=== PATIENT | male | born 1955 | race Caucasian/White ===

== ENCOUNTER 2017-01-29 13:51 | Emergency (ER) | payer MEDICARE, OTHER ==
[2017-01-29 14:09] LABS: BASOPHIL# 0.1 X 10^3uL (0.0-0.1); BASOPHILS 0.8 % (0.0-2.0); EOSINOPHILS 0.7 % (0.0-6.0); EOSINOPHILS# 0.1 X 10^3uL (0.0-0.4); HEMATOCRIT 45.2 % (42.0-54.0); HEMOGLOBIN 15.5 g/dL (14.0-18.0); LYMPHOCYTES 17.3 % (20.0-40.0); LYMPHOCYTES# 1.3 X 10^3uL (0.8-3.8); MEAN CELL VOLUME 91.1 fL (80.0-100.0); MEAN CORPUS. HGB CONCENTRATION 34.3 g/dL (32.0-36.0); MEAN CORPUSCULAR HEMOGLOBIN 31.3 pg (29.0-35.0); MEAN PLATELET VOLUME 9.1 fL (7.4-10.4); MONOCYTES 10.3 % (2.0-10.0); MONOCYTES# 0.8 X 10^3uL (0.2-1.0); NEUTROPHILS 70.9 % (54.0-75.0); NEUTROPHILS# 5.3 X 10^3uL (2.6-6.7); PLATELET COUNT 220 X 10^3uL (130-440); RED BLOOD COUNT 4.96 X 10^6uL (4.20-6.10); RED CELL DISTRIBUTION WIDTH 14.1 % (11.5-14.5); WHITE BLOOD COUNT 7.6 X 10^3uL (3.9-10.7)
[2017-01-29 14:15] LABS: BLOOD UREA NITROGEN 15 mg/dL (9-20); CALCIUM 9.3 mg/dL (8.4-10.2); CHLORIDE 101 mmol/L (98-107); CREATININE 0.9 mg/dL (0.7-1.3); EST GLOMERULAR FILTRATION RATE > 60 mL/min; GLUCOSE 111 mg/dL (70-100); POTASSIUM 3.8 mmol/L (3.5-5.1); SODIUM 141 mmol/L (137-145)
[2017-01-29 14:30] LABS: TROPONIN I 0.045 ng/mL (0.00-0.034)
[2017-01-29] MEDS ORDERED: NITROGLYCERIN 250 ML IV ONE (14:38)
[2017-01-29] MEDS ORDERED: HEPARIN SOD PORCINE 5,000 UNITS/ML VIAL ONE (15:10)
--- NOTE | 2017-01-29 15:17 | RADIOLOGY REPORT ---
A limited single portable view of the chest, without prior films for comparison , demonstrates evidence of prior sternal splitting thoracotomy. The heart and vessels are unremarkable. The lung joseph are clear. No infiltrate, fluid or pneumothorax is seen. IMPRESSION: Post surgical changes. No acute cardiopulmonary abnormality is identified. MTDD
--- NOTE | 2017-01-29 15:49 | ER NURSING DOCUMENTATION ---
Nurse's Notes [facility] Name:Morgan Eugene Age:61 yrs Sex:Male :1955 Arrival Date:01/29/2017 Time:13:51 BedTrauma-C MD: Diagnosis:Anterior Myocardial Infarction, STEMI Presentation: 01/29 13:54 Presenting complaint: Patient states: CP and SOB while working outside earlier today. tg Pain radiated to left arm. 02/08 originally. Transition of care: patient was received from another setting of care (ambulatory primary care physician practice). AIR CAT ACTIVATION no. Asprin Given by EMS Given PO: 243mg. 13:54 Acuity: RONI 2 tg 13:54 Method Of Arrival: EMS: 410 tg 13:55 Care prior to arrival: 12 lead EKG IV initiated. gauge and site 18g RAC Saline lock tg initiated. IV Fluids given by EMS NS 500 ml Medication(s) given: ASA, NTG, x1. Triage Assessment: 13:56 General: Appears in no apparent distress, comfortable, Behavior is cooperative, tg pleasant. Pain: Complains of pain in anterior aspect of left upper chest Pain radiates to left shoulder Is intermittent. Cardiovascular: Capillary refill < 3 seconds Rhythm is sinus rhythm. Respiratory: Respiratory effort is even, unlabored. Derm: Skin is pink, warm & dry. Historical: - Allergies: No known drug Allergies; - Home Meds: 1. Albuterol Inhl 2. Coreg Oral 3. Digoxin Oral 4. fluticasone nasl 5. Lasix Oral 6. Lisinopril Oral 7. Hydrocodone-Acetaminophen 5-325 mg Oral 8. propafenone Oral - PMHx: ATRIAL FIB; SVT; ANGINA; - PSHx: aortic valve repair; - Tetanus: unknown. - Ebola Screening: : Patient negative for fever greater than or equal to 101.5 degrees Fahrenheit, and additional compatible Ebola Virus Disease symptoms. Patient denies exposure to infectious person. Patient denies travel to an Ebola-affected area in the 21 days before illness onset. No symptoms or risks identified at this time. . - Immunization history: Unable to Obtain. - Social history: Smoking status: unknown if patient ever smoked tobacco. Screenin:37 Infectious Disease Risk Unable to Obtain. Abuse screen: Denies threats or abuse. Denies tg injuries from another. Nutritional screening: No deficits noted. Assessment: 14:16 Reassessment: Pt reported that pain had returned, EKG obtained during pain episode. . tg 15:17 Reassessment: Flight team at bedside, placed pt on their monitoring equipment and tg assuming care of patient.. 15:22 Reassessment: Pt has left the ED. tg Vital Signs: 13:57 BP 136 / 68; Pulse 76; Resp 17; Pulse Ox 94% on R/A; Weight 85.73 kg (R); Height 6 ft. tg 1 in. (185.42 cm); Pain 3/10; 14:35 BP 135 / 76 (auto/); tg 14:36 Pulse 66 MON; Resp 22; Pulse Ox 94% ; tg 14:40 BP 129 / 76 (auto/); tg 14:45 BP 131 / 75 (auto/); tg 14:46 Pulse 62 MON; Resp 20; Pulse Ox 96% ; tg 14:51 BP 131 / 73 (auto/); tg 14:51 Pulse 60 MON; Resp 16; Pulse Ox 96% ; tg 15:14 Pain 0/10; tg 13:57 Body Mass Index 24.94 (85.73 kg, 185.42 cm) tg ED Course: 13:52 Patient arrived in ED. cj 13:52 EKG done. (by ED staff). Reviewed by Alon Foster MD. tg 13:52 engine monitor on. Pulse ox on. NIBP on. tg 13:54 Benjamin Guillen, RN is Primary Nurse. tg 13:55 Triage completed. tg 13:59 Port Xray Completed. tt 14:16 EKG done. Repeat EKG. tg 14:26 Alon Foster MD is Attending Physician. tl1 14:37 Valuables Remains with patient. tg 14:38 Inserted peripheral IV: 20 gauge in left antecubital area. Maintain field IV. Site tg clean & dry. Gauge & site: 18g RAC. Oxygen Oxygen administration via nasal cannula @ 2L/min. 14:49 EKG attached lp Administered Medications: 14:33 Drug: Nitro Drip - (Nitroglycerin 50 mg, D5W 250 ml); {Note: Set up by EMS on EMS pump, tg to faciliate transport.} Route: IV; Rate: 10 mcg/min; Site: right antecubital; 14:38 Follow up: Increased to 15mcg per minute tg 15:16 Follow up: IV Status: Infusing continued upon transfer tg 15:04 Drug: heparin 4000 units; Route: IVP; Site: left antecubital; tg 15:16 Follow up: Response: No adverse reaction tg Intake: Outcome: 15:14 Transferred: Patient will be transferred to: [facility]. Facility tg Acceptance Time: January 29, 2017 at 14:55 Patient's face sheet was faxed to accepting facility. Face Sheet included patient's name, address, age, gender, contact information and insurance information. Patient will be transported by: [facility] Helicopter. Report called to: BRYAN Zuniga in laborer rags Nurse and Physician Charting and Notes were sent to Accepting Facility. All tests and/or procedures with results, if applicable, were sent to accepting facility. 15:14 Condition: improved 15:14 Discharge Assessment: Patient awake, alert and oriented x 3. No cognitive and/or functional deficits noted. Patient verbalized understanding of disposition instructions. Patient awake and alert. 15:14 Instructed on need for transfer 15:48 ER care complete, transfer ordered by MD. lpr 15:48 Patient left the ED. lpr Signatures: Benjamin Guillen, RN RN tg Kelly Castellano, BRYAN RN lp Serenity Taylor Leslie, RN RN lpr Alon Foster MD MD tl1 Shanda Kapoor
--- NOTE | 2017-01-29 15:49 | ER PHYSICIAN DOCUMENTATION ---
Physician Documentation [facility] Name:Morgan Eugene Age:61 yrs Sex:Male :1955 Arrival Date:01/29/2017 Time:13:51 BedTrauma-C Private MD: Alon Vo Disposition: 01/29/17 15:48 Transfer ordered to [facility]. Diagnosis is Anterior Myocardial Infarction, STEMI. - Reason for transfer: Higher level of care. - Accepting physician is Serafin Mendez and Dr. Danelle Hernandez. - Condition is Serious. - Problem is new. - Symptoms have worsened. COBRA Form completed? Transfer - Mode of Transportation Helicopter HPI: 01/29 13:53 This 61 yrs old Male presents to ER via EMS with complaints of Chest Pain. tl1 13:53 The patient or guardian reports chest pain that is located primarily in the substernal tl1 area. Onset: suddenly, this morning, at 11:00. Associated signs and symptoms: Pertinent positives: diaphoresis, dizziness, Pertinent negatives: nausea, palpitations, shortness of breath, vomiting. The chest pain is described as sharp. Duration: The patient or guardian reports multiple episodes, approximately 6 episodes since symptom onset, that are intermittent, that wax and wane, the episodes last approximately 5 minute(s). Historical: - Allergies: No known drug Allergies; - Home Meds: 1. Albuterol Inhl 2. Coreg Oral 3. Digoxin Oral 4. fluticasone nasl 5. Lasix Oral 6. Lisinopril Oral 7. Hydrocodone-Acetaminophen 5-325 mg Oral 8. propafenone Oral - PMHx: ATRIAL FIB; SVT; ANGINA; - PSHx: aortic valve repair; - Tetanus: unknown. - Ebola Screening: : Patient negative for fever greater than or equal to 101.5 degrees Fahrenheit, and additional compatible Ebola Virus Disease symptoms. Patient denies exposure to infectious person. Patient denies travel to an Ebola-affected area in the 21 days before illness onset. No symptoms or risks identified at this time. . - Immunization history: Unable to Obtain. - Social history: Smoking status: unknown if patient ever smoked tobacco. Vital Signs: 13:57 BP 136 / 68; Pulse 76; Resp 17; Pulse Ox 94% on R/A; Weight 85.73 kg (R); Height 6 ft. tg 1 in. (185.42 cm); Pain 3/10; 14:35 BP 135 / 76 (auto/); tg 14:36 Pulse 66 MON; Resp 22; Pulse Ox 94% ; tg 14:40 BP 129 / 76 (auto/); tg 14:45 BP 131 / 75 (auto/); tg 14:46 Pulse 62 MON; Resp 20; Pulse Ox 96% ; tg 14:51 BP 131 / 73 (auto/); tg 14:51 Pulse 60 MON; Resp 16; Pulse Ox 96% ; tg 15:14 Pain 0/10; tg 13:57 Body Mass Index 24.94 (85.73 kg, 185.42 cm) tg MDM: 14:07 Patient medically screened. tl1 14:49 EKG attached lp 01/29 14:10 Order name: CBC AUTO DIF, MDIF/RMOR IF IND; Complete Time: 14:43 EDMS 01/29 14:43 Interpretation: WHITE BLOOD COUNT 7.6; HEMOGLOBIN 15.5; HEMATOCRIT 45.2; PLATELET COUNT tl1 220. 01/29 14:31 Order name: BASIC METABOLIC PANEL; Complete Time: 14:43 EDMS 01/29 14:43 Interpretation: Normal: SODIUM 141; POTASSIUM 3.8; CHLORIDE 101; CARBON DIOXIDE 30; tl1 GLUCOSE 111; BLOOD UREA NITROGEN 15; CREATININE 0.9; EST GLOMERULAR FILTRATION RATE > 60. 01/29 14:31 Order name: MAGNESIUM; Complete Time: 14:43 EDMS 01/29 14:44 Interpretation: Normal: MAGNESIUM 2.0. 1 01/29 14:31 Order name: BNP,NT-PRO; Complete Time: 14:43 EDMS 01/29 14:44 Interpretation: Abnormal: BNP,NT-PRO 556. tl1 01/29 14:31 Order name: TROPONIN I; Complete Time: 14:43 EDMS 01/29 14:44 Interpretation: Abnormal: TROPONIN I 0.045. 1 01/29 15:32 Order name: CHEST; SINGLE VIEW [id number]; Complete Time: 09:47 EDMS 01/30 09:34 Interpretation: NAD. Post op changes. 1 01/29 14:25 Order name: 12-lead EKG; Complete Time: 14:30 tg 01/29 14:25 Order name: 12-lead EKG; Complete Time: 14:30 tg 01/29 14:25 Order name: Cardiac Monitoring - Continuous; Complete Time: 14:30 tg 01/29 14:39 Order name: Oxygen; Complete Time: 14:56 tg Dispensed Medications: 14:33 Drug: Nitro Drip - (Nitroglycerin 50 mg, D5W 250 ml); {Note: Set up by EMS on EMS pump, tg to faciliate transport.} Route: IV; Rate: 10 mcg/min; Site: right antecubital; 14:38 Follow up: Increased to 15mcg per minute tg 15:16 Follow up: IV Status: Infusing continued upon transfer tg 15:04 Drug: heparin 4000 units; Route: IVP; Site: left antecubital; tg 15:16 Follow up: Response: No adverse reaction tg Signatures: Benjamin Guillen RN RN tg Kelly Castellano RN RN lp Roberts, Leslie, RN RN lpr Leigh, Tom, MD MD tl1
== END 2017-01-29 15:49 | disposition short-term general hospital (02) ==
LOC: ER 13:51
DX: I21.09 ST elevation (STEMI) myocardial infarction involving other coronary artery of anterior wall (principal); R06.02 Shortness of breath; R61 Generalized hyperhidrosis; R42 Dizziness and giddiness; I48.91 Unspecified atrial fibrillation; Z79.899 Other long term (current) drug therapy; Z74.3 Need for continuous supervision
CPT/HCPCS: 71010; 80048; 83735; 83880; 84484; 85025; 93005; 96365; 96375; 99285; A0420; A0425; A0427; J1644